=== PATIENT | female | born 1990 | race African-American/Black ===

== ENCOUNTER 2017-08-10 13:16 | Emergency (ER) | payer SELFPAY ==
[2017-08-10] MEDS ORDERED: ASPIRIN 325 MG TABLET PO ONE (14:00)
--- NOTE | 2017-08-10 14:02 | ER Document Report ---
ED Medical Screen (RME) - General Chief Complaint: Rib Pain Stated Complaint: RIB PAIN Time Seen by Provider: 08/10/17 14:00 Mode of Arrival: Ambulatory Information source: Patient TRAVEL OUTSIDE OF THE [place] IN LAST 30 DAYS: No - HPI Patient complains to provider of: CP/Abd pain Onset: Other - pt states she has been having intermittent CP/Abd pain for the past week. She says she has had R-sided rib pain for the past year (denies h/o trauma) - Related Data Allergies/Adverse Reactions: cherries Allergy (Severe, Uncoded 05/09/16 20:05) face swells Past Medical History - Social History Chew tobacco use (# tins/day): No Frequency of alcohol use: None Drug Abuse: None Renal/ Medical History: Denies: Hx Peritoneal Dialysis GI Medical History: Reports: Hx Gastroesophageal Reflux Disease. Denies: Hx Hiatal Hernia, Hx Ulcer Psychiatric Medical History: Reports: Hx Depression, Hx Post Traumatic Stress Disorder Denies: Hx Bipolar Disorder, Hx Schizophrenia Infectious Medical History: Denies: Hx HIV Past Surgical History: Reports: Hx Section Physical Exam - Vital signs Vitals: Temp Pulse Resp BP Pulse Ox 98.2 F 88 20 131/79 H 100 08/10/17 13:22 08/10/17 13:22 08/10/17 13:22 08/10/17 13:22 08/10/17 13:22 Course - Vital Signs Vital signs: Temp Pulse Resp BP Pulse Ox 98.2 F 88 20 131/79 H 100 08/10/17 13:22 08/10/17 13:22 08/10/17 13:22 08/10/17 13:22 08/10/17 13:22
[2017-08-10] MEDS ORDERED: LIDOCAINE 2% VISCOUS SOLN 20 ML UDCUP PO ONE (14:26)
[2017-08-10] MEDS ORDERED: MAG HYDROX/AL HYDROX/SIMETH SUSP 30 ML UDCUP PO ONE (14:26)
[2017-08-10] MEDS ORDERED: METOCLOPRAMIDE HCL ORAL SOLN 10 MG/10 ML UDCUP PO ONE (14:26)
[2017-08-10 14:39] LABS: ABSOLUTE EOSINOPHILS # (AUTO) 0.2 10^3/uL (0.0-0.6); ABSOLUTE LYMPHOCYTES (AUTO) 2.9 10^3/uL (0.5-4.7); ABSOLUTE MONOCYTES (AUTO) 0.8 10^3/uL (0.1-1.4); ABSOLUTE NEUT (AUTO) 4.6 10^3/uL (1.7-8.2); BASOPHILS % (AUTO) 0.6 % (0-2); EOSINOPHILS % (AUTO) 2.5 % (0-6); HEMATOCRIT 31.6 % (36.0-47.0); HEMOGLOBIN 10.6 g/dL (12.0-15.5); HGB HCT DIFFERENCE 0.2; LYMPHOCYTES % (AUTO) 33.8 % (13-45); MEAN CORPUSCULAR HEMOGLOBIN 27.7 pg (27.0-33.4); MEAN CORPUSCULAR HGB CONC 33.6 g/dL (32.0-36.0); MEAN CORPUSCULAR VOLUME 83 fl (80-97); MONOCYTES % (AUTO) 9.7 % (3-13); RED BLOOD COUNT 3.82 10^6/uL (3.72-5.28); RED CELL DISTRIBUTION WIDTH 15.3 % (11.5-14.0); SEGMENTED NEUTROPHILS % (AUTO) 53.4 % (42-78); WHITE BLOOD COUNT 8.7 10^3/uL (4.0-10.5)
[2017-08-10 14:43] LABS: APPEARANCE,URINE CLEAR; BILIRUBIN,URINE NEGATIVE (NEGATIVE); GLUCOSE, URINE NEGATIVE (NEGATIVE); KETONES,URINE NEGATIVE (NEGATIVE); LEUKOCYTE ESTERASE,URINE NEGATIVE (NEGATIVE); NITRITE,URINE NEGATIVE (NEGATIVE); PROTEIN,URINE NEGATIVE (NEGATIVE); URINE SPECIFIC GRAVITY 1.024
--- NOTE | 2017-08-10 15:02 | RADIOLOGY REPORT (SQ) ---
EXAM DESCRIPTION: ACUTE ABDOMEN SERIES COMPLETED DATE/TIME: 08/10/2017 2:53 pm REASON FOR STUDY: CP/Abd pain COMPARISON: None. NUMBER OF VIEWS: Three views. TECHNIQUE: Frontal chest, supine abdomen and upright abdomen radiographic images acquired. LIMITATIONS: None. FINDINGS: CHEST: Lungs clear of infiltrates. FREE AIR: None. No abnormal gas collections. BOWEL GAS PATTERN: Nonobstructive pattern. No dilated loops or air fluid levels. CALCIFICATIONS: No suspicious calcifications. HARDWARE: None in the abdomen. SOFT TISSUES: No gross mass or suggestion of organomegaly. BONES: No acute fracture. No worrisome bone lesions. OTHER: No other significant finding. IMPRESSION: NO RADIOGRAPHIC EVIDENCE FOR ACUTE ABDOMINAL DISEASE. TECHNICAL DOCUMENTATION: JOB ID: [id number] [employer]- All Rights Reserved
[2017-08-10 15:03] LABS: ALANINE AMINOTRANSFERASE 44 U/L (9-52); ALBUMIN 4.3 g/dL (3.5-5.0); ALKALINE PHOSPHATASE 85 U/L (38-126); ANION GAP 11 (5-19); ASPARTATE AMINO TRANSFERASE 35 U/L (14-36); BILIRUBIN,DIRECT 0.3 mg/dL (0.0-0.4); BILIRUBIN,TOTAL 0.3 mg/dL (0.2-1.3); BLOOD UREA NITROGEN 13 mg/dL (7-20); CALCIUM 9.8 mg/dL (8.4-10.2); CARBON DIOXIDE 25 mmol/L (22-30); CHLORIDE 107 mmol/L (98-107); CREATINE KINASE 79 U/L (30-135); CREATININE RESULT 0.79 mg/dL (0.52-1.25); GLUCOSE 84 mg/dL (75-110); POTASSIUM 4.4 mmol/L (3.6-5.0); SODIUM 143.4 mmol/L (137-145); TOTAL PROTEIN 7.3 g/dL (6.3-8.2)
[2017-08-10 15:14] LABS: CREATINE KINASE MB < 0.22 ng/mL (<4.55); TROPONIN I < 0.012 ng/mL
--- NOTE | 2017-08-10 17:17 | RADIOLOGY REPORT (SQ) ---
EXAM DESCRIPTION: U/S ABDOMEN LIMITED W/O DOP COMPLETED DATE/TIME: 08/10/2017 4:51 pm REASON FOR STUDY: ruq pain COMPARISON: None. TECHNIQUE: Dynamic and static grayscale images acquired of the abdomen and recorded on PACS. Additio nal selected color Doppler and spectral images recorded. LIMITATIONS: None. FINDINGS: PANCREAS: No masses. Visualized pancreatic duct normal caliber. LIVER: No masses. Echotexture normal. LIVER VASCULATURE: Normal directional flow of the main portal vein and hepatic veins. GALLBLADDER: No stones. Normal wall thickness. No pericholecystic fluid. ULTRASOUND-DETECTED SHEPHERD'S SIGN: Negative. INTRAHEPATIC DUCTS AND COMMON DUCT: CBD and intrahepatic ducts normal caliber. No filling defects. INFERIOR VENA CAVA: Normal flow. AORTA: No aneurysm. RIGHT KIDNEY: Normal size. Normal echogenicity. No solid or suspicious masses. No hydronephrosis. No calcifications. PERITONEAL AND RIGHT PLEURAL SPACE: No ascites or effusions. OTHER: No other significant findings. IMPRESSION: NORMAL RIGHT UPPER QUADRANT ULTRASOUND. TECHNICAL DOCUMENTATION: JOB ID: [id number] [employer]- All Rights Reserved
--- NOTE | 2017-08-10 17:26 | ER Document Report ---
ED General - General Chief Complaint: Rib Pain Stated Complaint: RIB PAIN Time Seen by Provider: 08/10/17 14:00 Mode of Arrival: Ambulatory Information source: Patient Notes: Patient is a 26-year-old female who presents to the ER today for 1 year of right "rib pain." Patient states that it comes and goes, denies any injury ever. She states that it does get worse with eating fatty, greasy foods and she admits to some episodes of diarrhea intermittently over the past year. She denies any vomiting. She also admits to burning in the center of her chest that radiates up into her throat. She does have a history of stomach ulcers and is on Prilosec but nothing else. She has never had an endoscopy or colonoscopy. She still has her gallbladder. She denies any fevers or chills. TRAVEL OUTSIDE OF THE [place] IN LAST 30 DAYS: No - Related Data Allergies/Adverse Reactions: cherries Allergy (Severe, Uncoded 05/09/16 20:05) face swells Past Medical History - General Information source: Patient - Social History Smoking Status: Current Every Day Smoker Chew tobacco use (# tins/day): No Frequency of alcohol use: None Drug Abuse: None Family History: Reviewed & Not Pertinent Patient has suicidal ideation: No Patient has homicidal ideation: No Renal/ Medical History: Denies: Hx Peritoneal Dialysis GI Medical History: Reports: Hx Gastroesophageal Reflux Disease. Denies: Hx Hiatal Hernia, Hx Ulcer Psychiatric Medical History: Reports: Hx Depression, Hx Post Traumatic Stress Disorder Denies: Hx Bipolar Disorder, Hx Schizophrenia Infectious Medical History: Denies: Hx HIV Past Surgical History: Reports: Hx Section Review of Systems - Review of Systems Constitutional: No symptoms reported EENT: No symptoms reported Cardiovascular: No symptoms reported Respiratory: No symptoms reported Gastrointestinal: See HPI Genitourinary: No symptoms reported Female Genitourinary: No symptoms reported Musculoskeletal: See HPI Skin: No symptoms reported Hematologic/Lymphatic: No symptoms reported Neurological/Psychological: No symptoms reported Physical Exam - Vital signs Vitals: Temp Pulse Resp BP Pulse Ox 98.2 F 88 20 131/79 H 100 08/10/17 13:22 08/10/17 13:22 08/10/17 13:22 08/10/17 13:22 08/10/17 13:22 - Notes Notes: PHYSICAL EXAMINATION: GENERAL: Well-appearing and in no acute distress. HEAD: Atraumatic, normocephalic. EYES: Pupils equal round and reactive to light, extraocular movements intact, sclera anicteric, conjunctiva are normal. NECK: Normal range of motion, supple without lymphadenopathy LUNGS: CTAB and equal. No wheezes rales or rhonchi. HEART: Regular rate and rhythm without murmurs ABDOMEN: Soft, Right upper quadrant, epigastric tenderness. No guarding, no rebound BACK: no vertebral tenderness, normal ROM GI/: no CVA tenderness EXTREMITIES: Normal range of motion, no pitting edema. No cyanosis. NEUROLOGICAL: Cranial nerves grossly intact. Normal sensory/motor exams. PSYCH: Normal mood, normal affect. SKIN: Warm, Dry, normal turgor, no rashes or lesions noted Course - Re-evaluation Re-evalutation: 08/15/17 08:07 Lab work is unremarkable today, right upper quadrant ultrasound negative for any acute pathology to the gallbladder are otherwise. Patient likely has intermittent gallbladder attacks, to follow up with business area director who I have given her information for for that as well as for an endoscopy to evaluate her possible ulcers. I will send her home with Carafate and have advised that she continue Prilosec. - Vital Signs Vital signs: Temp Pulse Resp BP Pulse Ox 97.7 F 88 33 H 130/78 H 100 08/10/17 16:15 08/10/17 13:22 08/10/17 17:29 08/10/17 17:29 08/10/17 17:29 - Laboratory Result Diagrams: 08/10/17 14:15 08/10/17 14:15 Laboratory results interpreted by me: 08/10/17 08/10/17 14:15 14:15 Hgb 10.6 L Hct 31.6 L RDW 15.3 H Urine Urobilinogen 4.0 H Discharge - Discharge Clinical Impression: RUQ pain, Epigastric pain Condition: Stable Disposition: HOME, SELF-CARE Instructions: Gallbladder Disease ([facility]), Low-Fat Diet ([facility]) Additional Instructions: Return immediately for any new or worsening symptoms. Follow up with business area director, call tomorrow to make followup appointment. Prescriptions: Sucralfate [Carafate 1 gm Tablet] 1 gm PO ACHS #40 tablet Forms: Return to Work Referrals: LU SANABRIA MD [ACTIVE STAFF] - Follow up as needed
[2017-08-10 17:44] VITALS: BP 130/78
== END 2017-08-10 17:44 | disposition home or self-care (01) ==
LOC: ER 13:16
DX: K25.9 Gastric ulcer, unspecified as acute or chronic, without hemorrhage or perforation (principal); Z79.899 Other long term (current) drug therapy; R10.13 Epigastric pain; R10.11 Right upper quadrant pain; R07.81 Pleurodynia; R19.7 Diarrhea, unspecified; F17.200 Nicotine dependence, unspecified, uncomplicated; Z91.018 Allergy to other foods; Z87.19 Personal history of other diseases of the digestive system
CPT/HCPCS: 99284; 36415; 82553; 82550; 85025; 81025; 80053; 81001; 84484; 74022; 76705; J3490

== ENCOUNTER 2017-11-23 18:33 | Emergency (ER) | payer SELFPAY ==
[2017-11-23 18:51] VITALS: BP 127/76
[2017-11-23] MEDS ORDERED: IBUPROFEN 800 MG TABLET PO ONE (19:06)
[2017-11-23] MEDS ORDERED: PSEUDOEPHEDRINE HCL 30 MG TABLET PO ONE (19:06)
--- NOTE | 2017-11-23 19:06 | ER Document Report ---
HPI - HPI Pain Level: 5 Context: Patient is a 27-year-old female presents emergency department with chief complaint of sinus congestion, body aches since yesterday. She denies any fevers. States that she has not taken anything for symptoms. Admits to sick contacts at work. Otherwise healthy female. Non-smoker Past Medical History - Social History Smoking Status: Never Smoker Family History: Reviewed & Not Pertinent Renal/ Medical History: Denies: Hx Peritoneal Dialysis GI Medical History: Reports: Hx Gastroesophageal Reflux Disease. Denies: Hx Hiatal Hernia, Hx Ulcer Psychiatric Medical History: Reports: Hx Depression, Hx Post Traumatic Stress Disorder Denies: Hx Bipolar Disorder, Hx Schizophrenia Infectious Medical History: Denies: Hx HIV Past Surgical History: Reports: Hx Section Vertical Provider Document - CONSTITUTIONAL Agree With Documented VS: Yes Notes: PHYSICAL EXAM GENERAL: Alert, interacts well. HEENT: NCAT, pale conjunctiva, extraocular movements intact, pupils PERRL. external ear normal, no evidence of external auditory canal tenderness, blood/ drainage, cerumen impaction, TM intact without evidence of effusion, bulging, injection, MMM, Uvula midline. Airway patent. No evidence of tonsillar enlargement, peritonsillar abscess, retropharyngeal abscess. LUNGS: Clear to auscultation bilaterally, no wheezes, rales, or rhonchi. No respiratory distress. HEART: Regular rate and rhythm. No murmurs, gallops, or rubs. ABDOMEN: Soft, nondistended, nontender. No guarding, rebound, or rigidity.. Bowel sounds present in all 4 quadrants. EXTREMITIES: Moves all 4 extremities spontaneously. No edema, radial and dorsalis pedis pulses 2/4 bilaterally. No cyanosis. NEUROLOGICAL: Alert and oriented x4. Normal speech. PSYCH: Normal affect, normal mood. SKIN: Warm, dry, normal turgor. No rashes or lesions noted. - INFECTION CONTROL TRAVEL OUTSIDE OF THE [place] IN LAST 30 DAYS: No - RESPIRATORY O2 Sat by Pulse Oximetry: 98 Course - Re-evaluation Re-evalutation: 11/23/171999 Presentation is most consistent with a viral upper respiratory infection. Patient is overall well appearance, vitals within normal limits, well-hydrated. Patient denies any headache, neck pain, and has no evidence of meningismus on examination. Lungs are clear bilaterally. No evidence of respiratory distress. Based on clinical exam and history, I do not suspect an acute pneumonia, meningitis, strep pharyngitis, or an acute encephalitis. No laboratory or imaging testing is indicated at this time. Will discharge patient with return precautions and followup recommendations. They are in agreement this plan have verbalized understanding return precautions. - Vital Signs Vital signs: Temp Pulse Resp BP Pulse Ox 98.5 F 101 H 20 127/76 H 98 11/23/17 18:50 11/23/17 18:50 11/23/17 18:50 11/23/17 18:50 11/23/17 18:50 Discharge - Discharge Clinical Impression: Viral syndrome Condition: Good Disposition: HOME, SELF-CARE Additional Instructions: Your symptoms are most likely due to a viral infection it should resolve over the next 7-14 days. You should take [id number] guanfacine per bottle instructions to help thin the mucus. For nasal congestion: I would recommend that you get [id number] oxymetazoline also known is afrin. You can also utilize pseudophedrine for your decongestant. Use only per bottle instructions and be sure to never use this for more than 3 days if you can develop severe rebound congestion. You may also use tylenol or ibuprofen as needed for aches and thorat discomfort. Please be sure to drink plenty of fluids and get rest. Return to the emergency department he began having difficulty breathing, chest pain, persistent vomiting, or any other symptoms that are concerning to you. Forms: Return to Work
[2017-11-23 19:44] LABS: A TYPE INFLUENZA AG NEGATIVE (NEGATIVE); B INFLUENZA AG NEGATIVE (NEGATIVE)
== END 2017-11-23 19:57 | disposition home or self-care (01) ==
LOC: ER 18:33
DX: R09.81 Nasal congestion (principal); B34.9 Viral infection, unspecified; M79.1 Myalgia
CPT/HCPCS: 87804; 99283

== ENCOUNTER 2018-02-04 21:49 | Emergency (ER) | payer MEDICAID ==
--- NOTE | 2018-02-05 00:51 | RADIOLOGY REPORT (SQ) ---
EXAM DESCRIPTION: U/S OB TRANSVAGINAL W/O DOP CLINICAL HISTORY: 27 years Female, preg, bleeding, pain COMPARISON: None. TECHNIQUE: Complete first trimester obstetrical ultrasound with transvaginal imaging. LMP 11/27/2017 FINDINGS: The cervix measures 2.8 cm. Also possible small amount of fluid in the cervix. The uterus measures 12.5 x 9.1 x 7.0 cm. Within the uterus there is a single gestational sac. There is a single fetus with a crown-rump length of 2.87 cm compatible with an estimated gestational age of 9 weeks, 5 days. heart rate of 180 beats for minute. There is a 1.8 x 1.1 cm hypodensity adjacent to the gestational sac likely representing a subchorionic hemorrhage. The right ovary measures 4.0 x 2.7 x 2.6 cm. The left ovary is not identified. IMPRESSION: 1. Single live intrauterine with estimated gestational age of 9 weeks, 5 days. heart rate of 180 beats for minute. 2. Possible small amount of fluid in the cervix as well as a small likely subchorionic hemorrhage measuring 1.8 cm. Close continued clinical, laboratory, and sonographic follow-up recommended.
--- NOTE | 2018-02-05 00:54 | ER Document Report ---
ED General - General Chief Complaint: vaginal spotting with Stated Complaint: ABNORMAL VAGINAL DISCHARGE Time Seen by Provider: 02/04/18 22:59 Notes: Patient is a 27-year-old female, at 9 weeks by LMP who presents with concerns of brownish vaginal discharge that started just prior to arrival. She does note that she has had some mild, intermittent lower abdominal cramping. Nothing seems to improve or worsen her symptoms. She denies a history of similar symptoms during her previous pregnancies. She is B+ in blood type. She denies any abdominal trauma, fever, vaginal discharge, or any additional concerns. She has not yet established care for this . TRAVEL OUTSIDE OF THE [place] IN LAST 30 DAYS: No - Related Data Allergies/Adverse Reactions: cherries Allergy (Severe, Uncoded 05/09/16 20:05) face swells Past Medical History - General Information source: Patient - Social History Smoking Status: Never Smoker Frequency of alcohol use: None Drug Abuse: None Lives with: Spouse/Significant other Family History: Reviewed & Not Pertinent Renal/ Medical History: Denies: Hx Peritoneal Dialysis GI Medical History: Reports: Hx Gastroesophageal Reflux Disease. Denies: Hx Hiatal Hernia, Hx Ulcer Psychiatric Medical History: Reports: Hx Depression, Hx Post Traumatic Stress Disorder Denies: Hx Bipolar Disorder, Hx Schizophrenia Infectious Medical History: Denies: Hx HIV Past Surgical History: Reports: Hx Section, Hx Tonsillectomy Review of Systems - Review of Systems Notes: Constitutional: Negative for fever. HENT: Negative for sore throat. Eyes: Negative for visual changes. Cardiovascular: Negative for chest pain. Respiratory: Negative for shortness of breath. Gastrointestinal: Positive for abdominal cramping Genitourinary: Positive for vaginal bleeding Musculoskeletal: Negative for back pain. Skin: Negative for rash. Neurological: Negative for headaches, weakness or numbness. 10 point ROS negative except as marked above and in HPI. Physical Exam - Vital signs Interpretation: Normal Notes: PHYSICAL EXAMINATION: GENERAL: Well-appearing, well-nourished and in no acute distress. HEAD: Atraumatic, normocephalic. EYES: Pupils equal round and reactive to light, extraocular movements intact, sclera anicteric, conjunctiva are normal. ENT: nares patent, oropharynx clear without exudates. Moist mucous membranes. NECK: Normal range of motion, supple without lymphadenopathy LUNGS: Breath sounds clear to auscultation bilaterally and equal. No wheezes rales or rhonchi. HEART: Regular rate and rhythm without murmurs ABDOMEN: Soft, nontender, normoactive bowel sounds. No guarding, no rebound. No masses appreciated. EXTREMITIES: Normal range of motion, no pitting or edema. No cyanosis. NEUROLOGICAL: No focal neurological deficits. Moves all extremities spontaneously and on command. PSYCH: Normal mood, normal affect. SKIN: Warm, Dry, normal turgor, no rashes or lesions noted. Course - Re-evaluation Re-evalutation: 02/05/18 00:54 Patient presents with a mild amount of vaginal bleeding in the setting of a first trimester . Ultrasound does demonstrate a viable intrauterine with active heart rate. No active bleeding at time of presentation. She is Rh positive. Patient's abdominal exam is otherwise benign without any focal tenderness. I do not suspect an acute appendicitis, pyelonephritis, cystitis, or bowel obstruction. At this time will discharge with return precautions and follow-up recommendations. Verbal discharge instructions given a the bedside and opportunity for questions given. Medication warnings reviewed. Patient is in agreement with this plan and has verbalized understanding of return precautions and the need for primary care follow-up in the next 24-72 hours. - Laboratory Laboratory results interpreted by me: 02/04/18 23:20 Beta HCG, Quant [id number] H - Diagnostic Test Radiology reviewed: Reports reviewed Discharge - Discharge Clinical Impression: First trimester , Vaginal bleeding during Condition: Good Disposition: HOME, SELF-CARE Additional Instructions: Your ultrasound today shows a living intrauterine . Please follow closely with your primary care TUBING TESTER. Please return if you develop severe abdominal pain, bleeding that goes through more than 2 pads for more than 2 hours, pass out, or have any other symptoms that are concerning to you. Please follow-up closely with your OBGYN regarding todays visit.
[2018-02-05 01:13] VITALS: BP 122/61
== END 2018-02-05 01:10 | disposition home or self-care (01) ==
LOC: ER 21:49
DX: O26.851 Spotting complicating pregnancy, first trimester (principal); Z3A.01 Less than 8 weeks gestation of pregnancy
CPT/HCPCS: 36415; 76817; 84702; 99284

== ENCOUNTER 2018-06-07 09:47 | Outpatient (CLI) | payer MEDICAID ==
[2018-06-07 11:02] LABS: URINE AMPHETAMINES SCREEN NEGATIVE; URINE BARBITURATES SCREEN NEGATIVE; URINE BENZODIAZEPINES SCREEN NEGATIVE; URINE COCAINE SCREEN NEGATIVE; URINE MARIJUANA (THC) SCREEN NEGATIVE; URINE METHADONE SCREEN NEGATIVE; URINE PHENCYCLIDINE SCREEN NEGATIVE
[2018-06-07 11:34] LABS: APPEARANCE,URINE SLIGHTLY-CLOUDY; BILIRUBIN,URINE NEGATIVE (NEGATIVE); CALCIUM OXALATE CRYSTALS,URINE RARE /HPF; COLOR,URINE YELLOW; GLUCOSE, URINE NEGATIVE (NEGATIVE); KETONES,URINE NEGATIVE (NEGATIVE); LEUKOCYTE ESTERASE,URINE TRACE (NEGATIVE); NITRITE,URINE NEGATIVE (NEGATIVE); PROTEIN,URINE NEGATIVE (NEGATIVE); URINE SPECIFIC GRAVITY 1.017
[2018-06-07] MEDS ORDERED: HYDROXYZINE PAMOATE 50 MG CAPSULE PO ONE (11:44)
[2018-06-07] MEDS ORDERED: HYDROXYZINE PAMOATE 50 MG CAPSULE ONE (11:46)
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
== END 2018-06-07 13:11 | disposition home or self-care (01) ==
LOC: LC 09:47 → EDSTATUS 10:11 → LC 10:13
PROVIDERS: ATTEND Obstetrics & Gynecology
PROC: 4A1HXCZ Monitoring of Products of Conception, Cardiac Rate, External Approach (ICD-10-PCS; principal; 2018-06-07)
DX: O9A.212 Injury, poisoning and certain other consequences of external causes complicating pregnancy, second trimester (principal); Z3A.25 25 weeks gestation of pregnancy
CPT/HCPCS: 81001; 80307; 59899; J3490

== ENCOUNTER 2018-08-26 11:41 | Outpatient (CLI) | payer MEDICAID | END 2018-08-26 13:15 | disposition home or self-care (01) | LOC: LC 11:41 | PROVIDERS: ATTEND Student in an Organized Health Care Education/Training Program | PROC: 4A1HXCZ Monitoring of Products of Conception, Cardiac Rate, External Approach (ICD-10-PCS; principal; 2018-08-26) | DX: O99.333 Smoking (tobacco) complicating pregnancy, third trimester (principal); O99.343 Other mental disorders complicating pregnancy, third trimester; F41.8 Other specified anxiety disorders; Z3A.39 39 weeks gestation of pregnancy | CPT/HCPCS: 59025 ==

== ENCOUNTER 2018-08-28 18:08 | Emergency (ER) | payer MEDICAID ==
[2018-08-28 18:15] VITALS: BP 125/79
[2018-08-28] MEDS ORDERED: LIDOCAINE 2% URO-JET 5 ML KIT MM ONE (18:59)
--- NOTE | 2018-08-28 19:07 | ER Document Report ---
ED General - General Chief Complaint: Rectal Pain Stated Complaint: RECTAL ISSUE Time Seen by Provider: 08/28/18 18:49 TRAVEL OUTSIDE OF THE [place] IN LAST 30 DAYS: No - HPI Patient complains to provider of: Rectal pain Notes: Patient coming in approximately 7 weeks is having done on Sunday coming in for rectal pain. Patient has a history of hemorrhoids however is not treating her hemorrhoids of any medications. Patient denies any fever chills nausea vomiting diarrhea. Patient otherwise is lying comfortably on her right side. - Related Data Allergies/Adverse Reactions: cherries Allergy (Severe, Uncoded 08/28/18 18:09) face swells Past Medical History - Social History Smoking Status: Current Every Day Smoker Chew tobacco use (# tins/day): No Frequency of alcohol use: None Drug Abuse: None Family History: Reviewed & Not Pertinent Patient has suicidal ideation: No Patient has homicidal ideation: No Renal/ Medical History: Denies: Hx Peritoneal Dialysis GI Medical History: Reports: Hx Gastroesophageal Reflux Disease. Denies: Hx Hiatal Hernia, Hx Ulcer Psychiatric Medical History: Reports: Hx Depression, Hx Post Traumatic Stress Disorder Denies: Hx Bipolar Disorder, Hx Schizophrenia Infectious Medical History: Denies: Hx HIV Past Surgical History: Reports: Hx Section, Hx Tonsillectomy Review of Systems - Review of Systems Constitutional: No symptoms reported EENT: No symptoms reported Cardiovascular: No symptoms reported Respiratory: No symptoms reported Gastrointestinal: No symptoms reported Genitourinary: Other - Rectal pain Female Genitourinary: No symptoms reported Musculoskeletal: No symptoms reported Skin: No symptoms reported Hematologic/Lymphatic: No symptoms reported Neurological/Psychological: No symptoms reported -: Yes All other systems reviewed and negative Physical Exam - Vital signs Vitals: Temp Pulse Resp BP Pulse Ox 98.3 F 107 H 20 125/79 96 08/28/18 18:14 08/28/18 18:14 08/28/18 18:14 08/28/18 18:14 08/28/18 18:14 Interpretation: Normal - General General appearance: Appears well, Alert - HEENT Head: Normocephalic, Atraumatic Eyes: Normal Pupils: PERRL - Respiratory Respiratory status: No respiratory distress Chest status: Nontender Breath sounds: Normal Chest palpation: Normal - Cardiovascular Rhythm: Regular Heart sounds: Normal auscultation Murmur: No - Abdominal Inspection: Normal Distension: No distension Bowel sounds: Normal Tenderness: Nontender Organomegaly: No organomegaly - Rectal Hemorrhoids: External - Approximately 2 cm partially thrombosed hemorrhoid - Back Back: Normal, Nontender - Extremities General upper extremity: Normal inspection, Nontender, Normal color, Normal ROM , Normal temperature General lower extremity: Normal inspection, Nontender, Normal color, Normal ROM , Normal temperature, Normal weight bearing. No: Aditya's sign - Neurological Neuro grossly intact: Yes Cognition: Normal Orientation: AAOx4 [place] Coma Scale Eye Opening: Spontaneous Brian Coma Scale Verbal: Oriented Brian Coma Scale Motor: Obeys Commands [place] Coma Scale Total: 15 Speech: Normal Motor strength normal: LUE, RUE, LLE, RLE Sensory: Normal - Psychological Associated symptoms: Normal affect, Normal mood - Skin Skin Temperature: Warm Skin Moisture: Dry Skin Color: Normal Course - Re-evaluation Re-evalutation: 08/28/18 21:59 Patient was to have a partially thrombosed hemorrhoid approximate 2 cm. Patient at this time recommended to have symptomatic treatment with lidocaine and Anusol. Patient was given surgery and GI follow-up for definitive treatment of hemorrhoids when she has a section. - Vital Signs Vital signs: Temp Pulse Resp BP Pulse Ox 98.3 F 107 H 20 125/79 96 08/28/18 18:14 08/28/18 18:14 08/28/18 18:14 08/28/18 18:14 08/28/18 18:14 Discharge - Discharge Clinical Impression: Acute hemorrhoid Disposition: HOME, SELF-CARE Instructions: Gastroenterology, Hemorrhoids ([facility]) Additional Instructions: Follow-up with your primary care physician. Physical examination it does show signs of hemorrhoids. I would highly recommend following up with her surgical clinic or the GI specialist listed for further evaluation of your hemorrhoids as he knows she is to use it before she. Return to the ER symptoms worsen take medications as prescribed. Prescriptions: Lidocaine HCl/Glycerin [Recticare Wipes] 1 each TP QID #60 towelette Pramoxine HCl/Mineral Oil/Znox [Anusol Ointment] 24 gm RC TID #1 tube Forms: Return to Work Referrals: JUAN MIGUEL CERVANTES MD [ACTIVE STAFF] - Follow up as needed
== END 2018-08-28 19:42 | disposition home or self-care (01) ==
LOC: ER 18:08
DX: O22.40 Hemorrhoids in pregnancy, unspecified trimester (principal); O99.330 Smoking (tobacco) complicating pregnancy, unspecified trimester; Z3A.00 Weeks of gestation of pregnancy not specified; Z91.018 Allergy to other foods
CPT/HCPCS: 99283; J3490

== ENCOUNTER 2018-08-30 07:12 | Inpatient (IN) | payer MEDICAID ==
[2018-08-30] MEDS ORDERED: GLUCAGON,HUMAN RECOMB 1 MG INJ SUBCUT PRN (07:34)
[2018-08-30] MEDS ORDERED: DEXTROSE 40% GEL 15 GM TUBE PO PRN ×2 (07:34)
[2018-08-30] MEDS ORDERED: DEXTROSE 50%-WATER 25 GM/50 ML DISP.SYRIN IV PRN ×2 (07:34)
[2018-08-30] MEDS ORDERED: CEFAZOLIN SODIUM 2 GM in DEXTROSE 5%-WATER 50 ML IV PRN (07:36)
[2018-08-30] MEDS ORDERED: RINGERS SOLUTION,LACTATED 1,000 ML IV ONE (07:38)
[2018-08-30] MEDS ORDERED: RINGERS SOLUTION,LACTATED 1,000 ML IV PRN (07:38)
[2018-08-30] MEDS ORDERED: CEFAZOLIN 2 GM/D5W RTU 2 GM/50 ML RTUPB IV PRN (08:00)
[2018-08-30 08:55] LABS: HEMATOCRIT 23.1 % (36.0-47.0); MEAN CORPUSCULAR HEMOGLOBIN 27.4 pg (27.0-33.4); MEAN CORPUSCULAR HGB CONC 32.8 g/dL (32.0-36.0); MEAN CORPUSCULAR VOLUME 83 fl (80-97); PLATELET COUNT 312 10^3/uL (150-450); RED BLOOD COUNT 2.77 10^6/uL (3.72-5.28); RED CELL DISTRIBUTION WIDTH 16.8 % (11.5-14.0); WHITE BLOOD COUNT 14.6 10^3/uL (4.0-10.5)
[2018-08-30 09:05] LABS: HEMOGLOBIN 7.6 g/dL (12.0-15.5)
[2018-08-30 09:27] LABS: ABSOLUTE LYMPHOCYTES# (MANUAL) 2.9 10^3/uL (0.5-4.7); ABSOLUTE MONOCYTES # (MANUAL) 0.1 10^3/uL (0.1-1.4); ABSOLUTE NEUTROPHILS# (MANUAL) 11.5 10^3/uL (1.7-8.2); BAND NEUTROPHILS % (MANUAL) 1 % (3-5); BASOPHILS % (MANUAL) 0 % (0-2); EOSINOPHILS % (MANUAL) 0 % (0-6); LYMPHOCYTES % (MANUAL) 20 % (13-45); MONOCYTES % (MANUAL) 1 % (3-13); SEGMENTED NEUTROPHILS % (MAN) 78 % (42-78); TOTAL CELLS COUNTED 100
[2018-08-30 09:32] LABS: ANISOCYTOSIS 1+; PLATELET COMMENT ADEQUATE; POLYCHROMASIA SLIGHT; TARGET CELLS 1+
[2018-08-30 09:34] LABS: ABSOLUTE RETICS # 0.065 10^6/uL (0.028-0.122); RETICULOCYTE COUNT (AUTO) 2.32 % (0.66-2.85)
[2018-08-30] MEDS ORDERED: NORMAL SALINE 250 ML IV PRN (09:52)
[2018-08-30] MEDS ORDERED: (PENDING PHARMACY ID) (Sertraline Hcl [Zoloft] 200 MG) PO SCH (10:00)
[2018-08-30] MEDS ORDERED: EPHEDRINE SULFATE INJ 50 MG/1 ML AMPULE ONE ×2 (10:31→18:18)
[2018-08-30 10:39] LABS: APPEARANCE,URINE CLOUDY; BILIRUBIN,URINE NEGATIVE (NEGATIVE); COLOR,URINE AMBER; GLUCOSE, URINE NEGATIVE (NEGATIVE); KETONES,URINE TRACE mg/dL (NEGATIVE); LEUKOCYTE ESTERASE,URINE MODERATE (NEGATIVE); NITRITE,URINE NEGATIVE (NEGATIVE); PROTEIN,URINE 100 mg/dL (NEGATIVE); URINE SPECIFIC GRAVITY 1.027
[2018-08-30 10:56] LABS: URINE AMPHETAMINES SCREEN NEGATIVE; URINE BARBITURATES SCREEN NEGATIVE; URINE BENZODIAZEPINES SCREEN NEGATIVE; URINE COCAINE SCREEN NEGATIVE; URINE MARIJUANA (THC) SCREEN NEGATIVE; URINE METHADONE SCREEN NEGATIVE; URINE PHENCYCLIDINE SCREEN NEGATIVE
[2018-08-30] MEDS ORDERED: KETAMINE HCL INJ 500 MG/10 ML VIAL ONE ×2 (10:59→18:21)
[2018-08-30 11:18] LABS: FERRITIN 6.83 ng/mL (6.2-137.0); IRON(TIBC) < 10.1 ug/dL (37-170)
[2018-08-30] MEDS ORDERED: SUCCINYLCHOLINE CHLORIDE INJ 200 MG/10 ML VIAL ONE (14:11)
[2018-08-30] MEDS ORDERED: NEOSTIGMINE METHYLSULFATE 10 MG/10 ML VIAL ONE (14:11)
[2018-08-30] MEDS ORDERED: ROCURONIUM BROMIDE INJ 50 MG/5 ML VIAL IV ONE (14:11)
[2018-08-30] MEDS ORDERED: ONDANSETRON HCL INJ/PF 4 MG/2 ML SDV ONE (14:11)
[2018-08-30] MEDS ORDERED: GLYCOPYRROLATE 1 MG/5 ML SYRINGE ONE (14:11)
[2018-08-30] MEDS ORDERED: KETOROLAC TROMETHAMINE 60 MG/2 ML SDV ONE (14:11)
[2018-08-30] MEDS ORDERED: DEXAMETHASONE SOD PHOSPHATE INJ 4 MG/1 ML VIAL ONE (14:11)
[2018-08-30] MEDS ORDERED: PROPOFOL INJ 200 MG/20 ML VIAL IV ONE (18:18)
[2018-08-30] MEDS ORDERED: OXYTOCIN 10 UNIT/ML VIAL ONE (18:18)
[2018-08-30] MEDS ORDERED: FENTANYL CITRATE INJ/PF 100 MCG/2 ML AMPUL ONE (18:18)
[2018-08-30] MEDS ORDERED: MIDAZOLAM 2 MG/2 ML INJ ONE (18:19)
[2018-08-30] MEDS ORDERED: BUPIVACAINE HCL/DEX-WATER/PF 15 MG/2 ML AMPULE ONE (18:19)
[2018-08-30] MEDS ORDERED: MORPHINE SULFATE 10 MG/ML INJ IV PRN (19:35)
[2018-08-30] MEDS ORDERED: PROMETHAZINE HCL INJ 25 MG/1 ML VIAL IV PRN ×2 (19:35→20:08)
[2018-08-30] MEDS ORDERED: DIPHENHYDRAMINE HCL 50 MG/ML VIAL IV PRN (19:35)
[2018-08-30] MEDS ORDERED: FENTANYL CITRATE INJ/PF 100 MCG/2 ML AMPUL IV PRN ×3 (19:35)
[2018-08-30] MEDS ORDERED: MORPHINE SULFATE 10 MG/ML INJ ONE ×2 (19:40→20:33)
[2018-08-30] MEDS ORDERED: ACETAMINOPHEN 1,000 MG/100 ML RTUPB IV PRN (20:08)
[2018-08-30] MEDS ORDERED: ACETAMINOPHEN 325 MG TABLET PO PRN (20:08)
[2018-08-30] MEDS ORDERED: DIPH/PERTUSS(ACELL)/TETANUS VAC/PF 0.5 ML SYR (>=10YO) IM PRN (20:08)
[2018-08-30] MEDS ORDERED: MEASLES,MUMPS&RUBELLA VACC/PF 0.5 ML VIAL SUBCUT PRN (20:08)
[2018-08-30] MEDS ORDERED: OXYCODONE-ACETAMINOPHEN 5-325 MG TABLET PO PRN (20:08)
[2018-08-30] MEDS ORDERED: OXYTOCIN/NORMAL SALINE 20 UNIT/1,000 ML RTUINJ IV PRN (20:08)
[2018-08-30] MEDS ORDERED: SIMETHICONE 80 MG TAB.CHEW PO PRN (20:08)
[2018-08-30] MEDS ORDERED: HYDROMORPHONE HCL INJ/PF 2 MG/ML AMPULE ONE (20:49)
[2018-08-30] MEDS: HYDROMORPHONE HCL INJ/PF 2 MG/ML AMPULE IV PRN (20:51)
[2018-08-30] MEDS ORDERED: ACETAMINOPHEN 1,000 MG/100 ML RTUPB IV ONE (20:53)
[2018-08-30] MEDS ORDERED: OXYTOCIN/NORMAL SALINE 20 UNIT/1,000 ML RTUINJ ONE (20:53)
[2018-08-30] MEDS ORDERED: PROMETHAZINE HCL INJ 25 MG/1 ML VIAL ONE (21:23)
[2018-08-30] MEDS ORDERED: DIPHENHYDRAMINE HCL 25 MG CAPSULE PO ONE (21:57)
[2018-08-30] MEDS ORDERED: DIPHENHYDRAMINE HCL 25 MG CAPSULE ONE (21:59)
--- NOTE | 2018-08-30 22:03 | Brief Operative Note ---
BRIEF OPERATIVE REPORT DATE OF SURGERY: 08/30/18 TIME OF SURGERY: 19:00 PREOPERATIVE DIAGNOSIS: H/o section x 2, Undesired fertility, Anemia POSTOPERATIVE DIAGNOSIS: DAGO - delivered, possible posterior fibroid SURGEON: OLIVIER AGUILLON FINDINGS: normal uterus except for possible posterior uterine fibroid, normal bilateral tubes and ovaries. Filschie clips x 2 placed on bilateral fallopian tubes, VFI delivered at 1922 on 08/30/2018. Apgars 9/9, weight 6#8oz. IVF 750ml , UOP 20ml COMPLICATIONS: None ESTIMATED BLOOD LOSS: 560ml TISSUE REMOVED OR ALTERED: placenta and cord TECHNICAL PROCEDURE: Repeat Section, Scar revision, Bilateral Tubal Ligation
[2018-08-31] MEDS: KETOROLAC TROMETHAMINE INJ/PF 30 MG/1 ML SDV IV SCH ×3 (00:06→13:00)
[2018-08-31] MEDS: HYDROMORPHONE HCL INJ/PF 2 MG/ML AMPULE IV PRN (03:37)
[2018-08-31 06:09] LABS: MEAN CORPUSCULAR HEMOGLOBIN 26.2 pg (27.0-33.4); MEAN CORPUSCULAR HGB CONC 32.4 g/dL (32.0-36.0); MEAN CORPUSCULAR VOLUME 81 fl (80-97); PLATELET COUNT 258 10^3/uL (150-450); RED BLOOD COUNT 2.97 10^6/uL (3.72-5.28); RED CELL DISTRIBUTION WIDTH 16.9 % (11.5-14.0); WHITE BLOOD COUNT 23.2 10^3/uL (4.0-10.5)
[2018-08-31 06:33] LABS: HEMOGLOBIN 7.8 g/dL (12.0-15.5)
[2018-08-31] MEDS ORDERED: DIPHENHYDRAMINE HCL 25 MG CAPSULE ONE (07:21)
[2018-08-31] MEDS: OXYCODONE-ACETAMINOPHEN 5-325 MG TABLET PO PRN ×5 (07:36→23:57)
[2018-08-31] MEDS: SERTRALINE HCL 50 MG TABLET PO SCH ×2 (07:54→10:03)
[2018-08-31] MEDS ORDERED: DIPHENHYDRAMINE HCL 25 MG CAPSULE PO PRN (08:16)
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
--- NOTE | 2018-08-31 10:01 | PDOC PROGRESS REPORT ---
Subjective-OB Progress Note for:: 08/31/18 Subjective: PO day #1, B+ Rubella Immune, Scant PNC, Hx of anemia, Blood transfussion prior to her yesterday. Hx of anxiety and depression, smoker, Pt with out c/ o pain today. Up out of bed this morning Physical Exam (OB) Vital Signs: Temp Pulse Resp BP Pulse Ox 98.7 F 83 18 129/88 H 98 08/31/18 00:45 08/31/18 00:45 08/31/18 00:45 08/31/18 00:45 08/31/18 00:45 Intake & Output 08/30/18 08/31/18 09/01/18 06:59 06:59 06:59 Intake Total 1700 Output Total 400 Balance 1700 -400 Weight 93.44 kg - General General Appearance: Appears well, Alert In distress: None - PIH/Pre-Eclampsia Clonus: Negative Headache: Absent Epigastric Pain: No Visual Changes: No - Dressing Removed: Yes Incision: Well Approximated Closure Type: Surgical Glue - Lochia Lochia Amount: Small 10-25 ml Lochia Color: Rubra/Red - Abdomen Description: Soft Hernia Present: No Fundal Description: Firm, Midline Fundal Height: u/u - u/2 - Respiratory Respiratory Status: No respiratory distress - Abdominal Distension: No distension Tenderness: Nontender - Genitourinary Genitourinary Note: voiding - Extremities Upper extremity: Normal inspection Lower extremities: Normal inspection - Neurological Cognition: Normal Orientation: AAOx4 - Psychological Associated symptoms: Normal mood - Skin Skin Temperature: Warm Skin Moisture: Dry Objective-Diagnostic Laboratory: 08/31/18 05:50 08/30/18 08/30/18 08/30/18 08:08 08:08 10:10 WBC RBC Hgb Hct MCV MCH MCHC RDW Plt Count Iron < 10.1 L TIBC 529 H % Saturation UNABLE TO CALCULATE Ferritin 6.83 Vitamin B12 455.0 Folate 9.20 Urine Color BRIGIDO Urine Appearance CLOUDY Urine pH 5.0 Ur Specific [place] 1.027 Urine Protein 100 H Urine Glucose (UA) NEGATIVE Urine Ketones TRACE H Urine Blood NEGATIVE Urine Nitrite NEGATIVE Ur Leukocyte Esterase MODERATE H Blood Type B POSITIVE Antibody Screen NEGATIVE 08/31/18 05:50 WBC 23.2 H RBC 2.97 L Hgb 7.8 L Hct 24.0 L MCV 81 MCH 26.2 L MCHC 32.4 RDW 16.9 H Plt Count 258 Iron TIBC % Saturation Ferritin Vitamin B12 Folate Urine Color Urine Appearance Urine pH Ur Specific [place] Urine Protein Urine Glucose (UA) Urine Ketones Urine Blood Urine Nitrite Ur Leukocyte Esterase Blood Type Antibody Screen Assessment and Plan(PN) - Assessment and Plan (1) Anxiety and depression Is this a current diagnosis for this admission?: Yes (2) Tobacco use affecting in third trimester, antepartum Is this a current diagnosis for this admission?: Yes (3) Anemia Qualifiers: Anemia type: iron deficiency Is this a current diagnosis for this admission?: Yes (4) Noncompliance with treatment plan Is this a current diagnosis for this admission?: Yes (5) Previous section Is this a current diagnosis for this admission?: Yes (6) S/P repeat low transverse Is this a current diagnosis for this admission?: Yes (7) Sterilization Is this a current diagnosis for this admission?: Yes - Time Spent with Patient Time with patient: Less than 15 minutes Medications reviewed and adjusted accordingly: Yes - Disposition Anticipated Discharge: Home Within: within 48 hours
[2018-08-31] MEDS: DOCUSATE SODIUM 100 MG CAPSULE PO SCH ×2 (10:03→19:12)
[2018-08-31] MEDS: PRENATAL VITAMIN W DHA CAPSULE PO SCH (10:03)
[2018-08-31] MEDS: FERROUS SULFATE 325 MG TABLET PO SCH ×2 (11:29→19:12)
[2018-08-31] MEDS: IBUPROFEN 800 MG TABLET PO SCH ×2 (19:11→23:57)
[2018-09-01] MEDS: OXYCODONE-ACETAMINOPHEN 5-325 MG TABLET PO PRN ×4 (04:13→15:53)
[2018-09-01] MEDS: IBUPROFEN 800 MG TABLET PO SCH ×2 (05:52→11:00)
--- NOTE | 2018-09-01 09:59 | PDOC DISCHARGE SUMMARY ---
Final Diagnosis Discharge Date: 09/01/18 - POD#2, pt desires to go home today. Doing well, no complaints. Hx of anemia, pt was transfused 2 units prior to her . B+, rubella immune. Hx of depression and anxiety. - Final Diagnosis (1) Anxiety and depression Is this a current diagnosis for this admission?: Yes (2) Tobacco use affecting in third trimester, antepartum Is this a current diagnosis for this admission?: Yes (3) Anemia Is this a current diagnosis for this admission?: Yes (4) Noncompliance with treatment plan Is this a current diagnosis for this admission?: Yes (5) Previous section Is this a current diagnosis for this admission?: Yes (6) S/P repeat low transverse Is this a current diagnosis for this admission?: Yes (7) Sterilization Is this a current diagnosis for this admission?: Yes Discharge Data - Discharge Medication Prescriptions: Ferrous Sulfate [Feosol 325 mg Tablet] 325 mg PO BIDPCBS #60 tablet Ibuprofen [Motrin 800 mg Tablet] 800 mg PO Q6 #60 tablet Oxycodone HCl/Acetaminophen [Percocet 5-325 mg Tablet] 1 tab PO Q4HP PRN 7 Days #30 tablet PRN Reason: Home Medications: Vit No.130/Iron/Folic [ Tablet] 1 each PO DAILY 03/03/16 Sertraline HCl [Zoloft] 200 mg PO DAILY 08/26/18 Ferrous Sulfate [Feosol 325 mg Tablet] 325 mg PO BIDPCBS #60 tablet 09/01/18 Ibuprofen [Motrin 800 mg Tablet] 800 mg PO Q6 #60 tablet 09/01/18 Oxycodone HCl/Acetaminophen [Percocet 5-325 mg Tablet] 1 tab PO Q4HP PRN 7 Days #30 tablet 09/01/18 Reason(s) for Admission: Ceasarean Section-Repeat Procedures: NST, Ultrasound Intrapartum Procedure(s): : Low Cervical, Transverse, Tubal Ligation - Diagnosis Test Laboratory: Temp Pulse Resp BP Pulse Ox 98.3 F 91 18 140/79 H 98 09/01/18 07:37 09/01/18 07:37 09/01/18 07:37 09/01/18 07:37 09/01/18 07:37 08/30/18 08/30/18 08/31/18 08:08 10:10 05:50 RBC 2.77 L 2.97 L Hgb 7.6 L 7.8 L Hct 23.1 L 24.0 L Urine Opiates Screen NEGATIVE - Discharge information/Instructions Discharge Activity: Activity As Tolerated, No Driving, No Lifting Over 10 Pounds , Pelvic Rest Discharge Diet: As Tolerated, Regular Disposition: HOME, SELF-CARE Follow up with: [facility] in: 1, Weeks
[2018-09-01] MEDS: FERROUS SULFATE 325 MG TABLET PO SCH (10:32)
[2018-09-01] MEDS: DOCUSATE SODIUM 100 MG CAPSULE PO SCH (10:32)
[2018-09-01] MEDS: SERTRALINE HCL 50 MG TABLET PO SCH (10:33)
[2018-09-01] MEDS: PRENATAL VITAMIN W DHA CAPSULE PO SCH (10:40)
[2018-09-01] MEDS ORDERED: BENZOCAINE/MENTHOL SORE THROAT LOZENGE BUCCAL PRN (10:45)
[2018-09-01 11:03] VITALS: BP 129/88
[2018-09-01] MEDS ORDERED: LIDOCAINE 2% VISCOUS SOLN 20 ML UDCUP PO PRN (11:08)
== END 2018-09-01 16:36 | disposition home or self-care (01) | DRG 785 ==
LOC: 2S 07:12
PROVIDERS: ADMIT Student in an Organized Health Care Education/Training Program; ATTEND Student in an Organized Health Care Education/Training Program
PROC: 10D00Z1 Extraction of Products of Conception, Low, Open Approach (ICD-10-PCS; principal; 2018-08-30)
PROC: 0UL70CZ Occlusion of Bilateral Fallopian Tubes with Extraluminal Device, Open Approach (ICD-10-PCS; 2018-08-30)
PROC: 30233N1 Transfusion of Nonautologous Red Blood Cells into Peripheral Vein, Percutaneous Approach (ICD-10-PCS; 2018-08-30)
PROC: 3E0234Z Introduction of Serum, Toxoid and Vaccine into Muscle, Percutaneous Approach (ICD-10-PCS; 2018-09-01)
DX: O34.211 Maternal care for low transverse scar from previous cesarean delivery (principal); N85.8 Other specified noninflammatory disorders of uterus; Z30.2 Encounter for sterilization; Z3A.39 39 weeks gestation of pregnancy; Z37.0 Single live birth; O99.334 Smoking (tobacco) complicating childbirth; O99.02 Anemia complicating childbirth; O99.214 Obesity complicating childbirth; O99.344 Other mental disorders complicating childbirth; D64.9 Anemia, unspecified; F17.210 Nicotine dependence, cigarettes, uncomplicated; F41.8 Other specified anxiety disorders; Z23 Encounter for immunization; Z91.19 Patient's noncompliance with other medical treatment and regimen
CPT/HCPCS: 1961; 36415; 36430; 59025; 80307; 81005; 82607; 82728; 82746; 83540; 83550; 85025; 85027; 85045; 86850; 86900; 86901; 86920; 90715; 94799; J0131; J0330; J1100; J1170; J1885; J2250; J2270; J2405; J2550; J2590; J2704; J3010; J3490; J7120; P9016

== ENCOUNTER 2019-02-10 20:39 | Emergency (ER) | payer MEDICAID ==
[2019-02-10 22:25] VITALS: BP 123/71
== END 2019-02-11 00:32 | disposition left against medical advice (07) ==
LOC: ER 20:39
DX: Z53.21 Procedure and treatment not carried out due to patient leaving prior to being seen by health care provider (principal)

== ENCOUNTER 2019-04-13 21:55 | Emergency (ER) | payer SELFPAY ==
[2019-04-13 22:04] VITALS: BP 121/75
[2019-04-13] MEDS ORDERED: LIDOCAINE 1%/EPINEPHRINE INJ 20 ML VIAL INJ ONE (22:35)
[2019-04-13] MEDS ORDERED: LIDOCAINE 4% TRANSPARENT DRESSING 5 GM KIT TP ONE (22:36)
[2019-04-13] MEDS ORDERED: DOXYCYCLINE HYCLATE 100 MG TABLET PO ONE (23:48)
[2019-04-13] MEDS ORDERED: HYDROCODONE/ACETAMINOPHEN 5-325 MG (6 TAB/ER DISP) PO PRN (23:48)
--- NOTE | 2019-04-13 23:50 | ER Document Report ---
ED General - General Chief Complaint: Abscess Stated Complaint: LUMP UNDER ARM Time Seen by Provider: 04/13/19 22:35 Notes: Patient is a pleasant 28-year-old female presents with complaint of an abscess right axilla region. She has had these before. Said this is bigger than what she had in the past. Says started a week ago as a small bump and continue to grow in size and therefore she came to the ER. No fevers. No vomiting. No other complaints at this time. She is not a diabetic. TRAVEL OUTSIDE OF THE [place] IN LAST 30 DAYS: No - Related Data Allergies/Adverse Reactions: cherries Allergy (Severe, Uncoded 08/28/18 18:09) face swells Past Medical History - Social History Smoking Status: Unknown if Ever Smoked Frequency of alcohol use: None Drug Abuse: None Family History: Reviewed & Not Pertinent Patient has suicidal ideation: No Patient has homicidal ideation: No Renal/ Medical History: Denies: Hx Peritoneal Dialysis GI Medical History: Reports: Hx Gastroesophageal Reflux Disease. Denies: Hx Hiatal Hernia, Hx Ulcer Psychiatric Medical History: Reports: Hx Depression, Hx Post Traumatic Stress Disorder Denies: Hx Bipolar Disorder, Hx Schizophrenia Infectious Medical History: Denies: Hx HIV Past Surgical History: Reports: Hx Section, Hx Tonsillectomy Review of Systems - Review of Systems Notes: My Normal Review Basic REVIEW OF SYSTEMS: CONSTITUTIONAL : Denies fever, chills, or sweats. Denies recent illness. MUSCULOSKELETAL: Denies neck or back pain or joint pain or swelling. SKIN: Abscess in right axilla HEMATOLOGIC : Denies easy bruising or bleeding. NEUROLOGICAL: Denies sensory or motor loss. ALL OTHER SYSTEMS REVIEWED AND NEGATIVE. Physical Exam - Vital signs Vitals: Temp Pulse Resp BP Pulse Ox 98.8 F 98 16 121/75 99 04/13/19 22:02 04/13/19 22:02 04/13/19 22:02 04/13/19 22:02 04/13/19 22:02 - Notes Notes: General Appearance: Well nourished, alert, cooperative, no acute distress, moderate obvious discomfort. Vitals: reviewed, See vital signs table. Eyes: PERRL, EOMI, Conjuctiva clear Extremities: good pulses in right upper extremity, 5 cm area of fluctuance in the right axilla. Localized erythema. No edema. Good strength and distal sensation of the right upper extremity. Skin: warm, dry, appropriate color, no rash Neuro: speech clear, oriented x 3, normal affect, responds appropriately to questions. Course - Re-evaluation Re-evalutation: 04/14/19 05:12 Abscess was incised and drained. Approximately 12 mL's of purulent discharge was expressed from abscess. Abscess was thoroughly irrigated. Patient replaced on antibiotics. She is encouraged to return to the ER in 2 days for reevaluation of the abscess and pack removal. She is encouraged to return to the ER immediately if she has fevers, spreading redness, recurrence of swelling, or if she has concerns that she is worsening in any way. Patient agrees with plan and will be discharged home. Dictation of this chart was performed using voice recognition software; therefore, there may be some unintended grammatical errors. - Vital Signs Vital signs: Temp Pulse Resp BP Pulse Ox 98.2 F 98 18 121/75 98 04/14/19 00:07 04/14/19 00:07 04/14/19 00:07 04/13/19 22:02 04/14/19 00:07 Procedures - Incision and Drainage right axilla Type: Simple Anesthetic type: 1% Lidocaine w/epi mL's of anesthetic: 3 Blade size: 11 I&D procedure: Betadine prep applied Incision Method: Incision made by scalpel Amount/type of drainage: 12 mls of purulent drainage Notes: 04/14/19 05:13 iodoform packing placed Discharge - Discharge Clinical Impression: Abscess Condition: Good Disposition: HOME, SELF-CARE Additional Instructions: We have placed packing in your abscess. Please return to the ER in 2 days so we can remove the packing. Please take the antibiotics as prescribed. I gave you a small bottle of a stronger pain medicine called Austin. Please be aware that Austin does have Tylenol (acetaminophen) in it. Please make sure you do not take more than 4000 mg of acetaminophen a day. Do not drive or care for children after you have taken this medication they will make you sleepy and sometimes impair judgment. Please return to the ER immediately if you have spreading redness, swelling, fevers, or feel that you have worsening infection. I have started you on an antibiotic called doxycycline. Doxycycline will make your skin more sensitive to the sun so please make sure you keep your skin covered or wear sunscreen whenever out in the sun. Prescriptions: RX: Doxycycline Hyclate 100 mg PO BID #14 tablet.dr Forms: Return to Work
== END 2019-04-14 00:10 | disposition home or self-care (01) ==
LOC: ER 21:55
DX: L02.411 Cutaneous abscess of right axilla (principal)
CPT/HCPCS: 99283; 10060; J3490 ×2

== ENCOUNTER 2019-04-16 11:36 | Emergency (ER) | payer SELFPAY ==
[2019-04-16 12:48] VITALS: BP 117/59
--- NOTE | 2019-04-16 12:55 | ER Document Report ---
ED Suture/Wound Recheck - General Chief Complaint: Wound Recheck Stated Complaint: WOUND RECHECK Time Seen by Provider: 04/16/19 12:35 Mode of Arrival: Ambulatory Information source: Patient Notes: 28-year-old female presented to ED for follow-up to an abscess that was I&D on the . Patient came to the ED today to have the packing removed and the abscess reassessed. She states she has not gotten the doxycycline because she cannot afford it. Patient is alert oriented respirations regular and unlabored speaking in full sentences walks with a even steady gait. Patient states she is changing the dressings as instructed. TRAVEL OUTSIDE OF THE [place] IN LAST 30 DAYS: No - HPI Previous ED treatment: I&D of abscess Antibiotics given previously: Prescription - She does not fill the prescription because she cannot afford it I did give her a coupon for discount on the prescription as she stated she would go and fill it as soon as she left here. Quality of pain: Achy, Sharp Severity: Moderate Pain Level: 3 Symptoms since procedure: Drainage, Pain. denies: Redness Exacerbated by: Movement Relieved by: Denies - Related Data Allergies/Adverse Reactions: cherries Allergy (Severe, Uncoded 04/16/19 11:51) face swells Past Medical History - General Information source: Patient - Social History Smoking Status: Current Every Day Smoker Smoking Education Provided: Yes - 4 minutes Frequency of alcohol use: None Drug Abuse: None Lives with: Family Family History: Reviewed & Not Pertinent Patient has suicidal ideation: No Patient has homicidal ideation: No - Past Medical History Cardiac Medical History: Reports: None Pulmonary Medical History: Reports: None EENT Medical History: Reports: None Neurological Medical History: Reports: None Endocrine Medical History: Reports: None Renal/ Medical History: Reports: None. Denies: Hx Peritoneal Dialysis Malignancy Medical History: Reports: None GI Medical History: Reports: Hx Gastroesophageal Reflux Disease Musculoskeletal Medical History: Reports None Skin Medical History: Reports None Psychiatric Medical History: Reports: Hx Depression, Hx Post Traumatic Stress Disorder Traumatic Medical History: Reports: None Infectious Medical History: Reports: None Past Surgical History: Reports: Hx Section, Hx Tonsillectomy Review of Systems - Review of Systems Constitutional: No symptoms reported EENT: No symptoms reported Cardiovascular: No symptoms reported Respiratory: No symptoms reported Gastrointestinal: No symptoms reported Genitourinary: No symptoms reported Female Genitourinary: No symptoms reported Musculoskeletal: No symptoms reported Skin: Other - Abscess I&D 2 days ago draining well at this time. Packing removed. Patient tolerated well. She states it did not hurt near as much as she thought it would. Site was irrigated with saline and dressing reapplied. Patient tolerated well. Hematologic/Lymphatic: No symptoms reported Neurological/Psychological: No symptoms reported -: Yes All other systems reviewed and negative Physical Exam - Vital signs Vitals: Temp Pulse Resp BP Pulse Ox 98.7 F 100 16 117/59 L 99 04/16/19 11:58 04/16/19 11:58 04/16/19 11:58 04/16/19 11:58 04/16/19 11:58 Interpretation: Normal - General General appearance: Appears well, Alert - HEENT Head: Normocephalic, Atraumatic Eyes: Normal Pupils: PERRL - Respiratory Respiratory status: No respiratory distress Chest status: Nontender Breath sounds: Normal Chest palpation: Normal - Cardiovascular Rhythm: Regular Heart sounds: Normal auscultation Murmur: No - Abdominal Inspection: Normal Distension: No distension Bowel sounds: Normal Tenderness: Nontender Organomegaly: No organomegaly - Back Back: Normal, Nontender - Extremities General upper extremity: Normal inspection, Nontender, Normal color, Normal ROM, Normal temperature General lower extremity: Normal inspection, Nontender, Normal color, Normal ROM, Normal temperature, Normal weight bearing. No: Aditya's sign - Neurological Neuro grossly intact: Yes Cognition: Normal Orientation: AAOx4 Brian Coma Scale Eye Opening: Spontaneous Humbird Coma Scale Verbal: Oriented Brian Coma Scale Motor: Obeys Commands Humbird Coma Scale Total: 15 Speech: Normal Motor strength normal: LUE, RUE, LLE, RLE Sensory: Normal - Psychological Associated symptoms: Normal affect, Normal mood - Skin Skin Temperature: Warm Skin Moisture: Dry Skin Color: Normal Location of irregularity: Extremities - Right axilla abscess draining well no redness no inflammation Irregularity with: Swelling, Tenderness Course - Re-evaluation Re-evalutation: 04/16/19 20:54 She states they had not started the antibiotics because they but could not afford the prescription. A discount coupon given for the prescription for [facility] and for [facility]. Patient states she would go right away and fill the prescription and take the medications as ordered. She was discharged home. She was instructed to irrigate the area or soak it with Epson salt 2-3 times a day. Patient verbalized understanding and agreement with treatment plan. Patient was discharged home. - Vital Signs Vital signs: Temp Pulse Resp BP Pulse Ox 98.7 F 100 16 117/59 L 99 04/16/19 11:58 04/16/19 11:58 04/16/19 11:58 04/16/19 11:58 04/16/19 11:58 Discharge - Discharge Clinical Impression: Abscess re-check Condition: Stable Disposition: HOME, SELF-CARE Instructions: Family Physicians / Practices Additional Instructions: ABSCESS: You have an abscess (boil). This a pus-forming infection, usually due to staph. Some boils may be left to drain on their own, but most require lancing. From the time the tender lump first appears, it may be three or four days before the abscess is ready to brandee. Local heat and rest help at this stage of treatment. An antibiotic may prevent spread of the infection. Once the abscess is opened, packing may be placed into it. This is done so pus is not sealed inside by premature closure of the cavity. The packing will be removed at your follow-up visit or you may be advised to remove it yourself at home. Sometimes this packing must be replaced a few times during healing. The wound will heal with surprisingly little scar. Depending on the size and location of an abscess, healing can take one to four weeks. You may shower and wash the area around the incision site two or three times a day. Antibiotics may be prescribed, but are usually not necessary after an abscess has been drained. If you develop fever, chills, worsening pain, or increasing swelling in the area, call the doctor or return immediately. DOXYCYCLINE: Doxycycline (Vibramycin, Doryx) is an antibiotic of the tetracycline family. This type of drug is useful for infections of the respiratory tract and genital tract, and is sometimes used for intestinal infections. Unlike most tetracyclines, doxycycline can be taken with food. It is longer acting, and (usually) less prone to side effects than regular tetracycline. Tetracycline antibiotics can stain immature teeth and SHOULD NOT BE TAKEN BY CHILDREN, NURSING MOTHERS, OR WOMEN. Tetracyclines can make you more prone to sunburn. Abdominal cramping, nausea, and diarrhea are occasional side effects. Women may experience vaginal yeast infections. Call the doctor at once if you develop hives, itching, shortness of breath, or lightheadedness. Epsom Salt Soaks Soak the wound area in a container of warm epsom salt water. If you can't get the wound area into a bucket or fernández, use a folded towel soaked in the epsom salt solution and apply to the area. Use clean hot tap water (about the temperature of a very warm bath), mixing in about one (1) teaspoon for every pint of water. Two gallon --> 16 teaspoons Epsom Salts One gallon --> 8 teaspoons Epsom Salts Two quarts --> 4 teaspoons Epsom Salts One quart --> 2 teaspoons Epsom Salts Soak the wound for about 20 minutes while gently moving it around in the water. Repeat this four (4) times a day. Ibuprofen Ibuprofen is an excellent, safe drug for pain control. In addition, it has potent antiinflammatory effects which are beneficial, especially in the treatment of injuries, arthritis, or tendonitis. It's best to take ibuprofen with food. Persons with ulcer disease or allergy to aspirin should notify their physician of this before taking ibuprofen. Take the medication exactly as prescribed. Don't take additional doses unless instructed to do so by your doctor. If you develop wheezing, shortness of breath, hives, faintness, stomach pain, vomiting, or dark black stools, return for re-evaluation at once. FOLLOW-UP CARE: If you have been referred to a physician for follow-up care, call the physicians office for an appointment as you were instructed or within the next two days. If you experience worsening or a significant change in your symptoms, notify the physician immediately or return to the Emergency Department at any time for re-evaluation. Forms: Smoking Cessation Education, Return to Work
== END 2019-04-16 12:53 | disposition home or self-care (01) ==
LOC: ER 11:36
DX: L02.411 Cutaneous abscess of right axilla (principal); T36.4X6A Underdosing of tetracyclines, initial encounter; Z91.120 Patient's intentional underdosing of medication regimen due to financial hardship; Z91.14 Patient's other noncompliance with medication regimen; Z48.01 Encounter for change or removal of surgical wound dressing; F17.200 Nicotine dependence, unspecified, uncomplicated; Z91.018 Allergy to other foods
CPT/HCPCS: 99282; 99406

== ENCOUNTER 2019-07-06 09:58 | Emergency (ER) | payer SELFPAY ==
[2019-07-06] MEDS ORDERED: LIDOCAINE 1%/EPINEPHRINE INJ 20 ML VIAL INJ ONE (11:03)
--- NOTE | 2019-07-06 11:04 | ER Document Report ---
HPI - HPI Time Seen by Provider: 07/06/19 10:56 Pain Level: 2 Context: Patient is a 28-year-old female presents to the emergency department with a chief complaint of abscess underneath the right axilla. Patient states she has had these before. Patient states the last time she had the abscess incised she was unable to get the antibiotic as she cannot afford it. Patient reports the abscess did seem to heal but never quite went away. Patient reports in the past week she has developed another abscess that has drained a yellow discharge. Patient reports is extremely tender. Patient denies fever. Patient denies history of diabetes. - REPRODUCTIVE Reproductive: DENIES: : Past Medical History - General Information source: Patient - Social History Smoking Status: Current Every Day Smoker Frequency of alcohol use: None Drug Abuse: None Lives with: Family Family History: Reviewed & Not Pertinent Patient has suicidal ideation: No Patient has homicidal ideation: No - Past Medical History Cardiac Medical History: Reports: None Pulmonary Medical History: Reports: None EENT Medical History: Reports: None Neurological Medical History: Reports: None Endocrine Medical History: Reports: None Renal/ Medical History: Reports: None. Denies: Hx Peritoneal Dialysis Malignancy Medical History: Reports: None GI Medical History: Reports: Hx Gastroesophageal Reflux Disease. Denies: Hx Hiatal Hernia, Hx Ulcer Musculoskeletal Medical History: Reports None Skin Medical History: Reports None Psychiatric Medical History: Reports: Hx Depression, Hx Post Traumatic Stress Disorder Denies: Hx Bipolar Disorder, Hx Schizophrenia Traumatic Medical History: Reports: None Infectious Medical History: Reports: None. Denies: Hx HIV Past Surgical History: Reports: Hx Section, Hx Tonsillectomy Vertical Provider Document - CONSTITUTIONAL Agree With Documented VS: Yes Exam Limitations: No Limitations General Appearance: No Apparent Distress - INFECTION CONTROL TRAVEL OUTSIDE OF THE [place] IN LAST 30 DAYS: No - HEENT HEENT: Atraumatic, Normocephalic, PERRLA - RESPIRATORY Respiratory: Breath Sounds Normal, No Respiratory Distress - CARDIOVASCULAR Cardiovascular: Regular Rate, Regular Rhythm - GI/ABDOMEN Gastrointestinal: Abdomen Soft, Abdomen Non-Tender, Normal Bowel Sounds - NEURO Level of Consciousness: Awake, Alert, Appropriate - DERM Integumentary: Warm, Abscess - Two abscesses noted in the right axilla. There is purulent drainage coming from the abscess that is more posterior to the body. Patient reports significant tenderness. The abscesses are fluctuant. There is no surrounding cellulitis. The abscesses total about 5 cm in length and appear to have joined together or are side by side. Course - Re-evaluation Re-evalutation: 07/06/19 11:07 Patient will require I&D. - Vital Signs Vital signs: Temp Pulse Resp BP Pulse Ox 98.7 F 97 16 129/82 H 98 07/06/19 10:03 07/06/19 10:03 07/06/19 10:03 07/06/19 10:03 07/06/19 10:03 Procedures - Incision and Drainage Right Arm Type: Multiple Anesthetic type: 1% Lidocaine w/epi mL's of anesthetic: 6 Blade size: 11 I&D procedure: Betadine prep applied Incision Method: Incision made with needle Notes: 07/06/19 14:09 2 incisions were made underneath the right axilla. There was a large amount of purulent drainage that came out of the wounds. I was able to irrigate the wounds with saline to remove most of the drainage. I did inform the patient that I need to make 1/3 injection of lidocaine to numb up an area. Patient declined another needlestick. I did inform the patient that if this was not cut open and drained the abscess may not get better. Patient states she would like to try to go home and use warm compresses and oral antibiotics. Discharge - Discharge Clinical Impression: Abscess Condition: Stable Disposition: HOME, SELF-CARE Instructions: Abscess ([facility]), Post Incision and Drainage Additional Instructions: Today he was seen in the emergency department for an abscess x2 underneath the right axilla. This did require an incision and drainage. A large amount of pus was removed from the area. You do need to have this rechecked in 2 days. Please return before then if you develop high fever, chills, if you note spreading of redness or increased swelling and tenderness underneath the arm. I have prescribed you an antibiotic called doxycycline which is also Vibramycin. Please use the [facility] card that I have given you to find the cheapest bethea. It is very important that you do get this antibiotic. We have sent off a culture, if this is positive for type of bacteria we need to change her antibiotic you will be contacted via telephone. Please use warm compresses to the site and gauze as the area may continue to drain it. The antibiotic that you are being placed on does cause her skin to be sensitive to the sun. Please refrain from getting out in the sun while on this antibiotic as it can blister and burn her skin. Post Incision and Drainage You have had an incision made to allow drainage of an abscess. The incision must remain open so that pus and debris can drain from the wound. If the abscess cavity is large, packing is placed. This keeps the tissues from collapsing and trapping pus inside, while the body shrinks the cavity. The packing may need to be replaced every day or two. The physician will instruct you on the packing. Keep a bulky dressing over the area. Replace it if it becomes saturated with blood or pus. Do not disturb the packing (if present). You may shower and cleanse the area with gentle soap and warm water two or three times a day. Local warmth may be soothing, and may promote faster healin g. Return if you develop high fever or chills, or if you note spreading redness, increasing swelling, or increasing tenderness. Abscess You have an abscess (boil). This a pus-forming infection, usually due to staph. Some boils may be left to drain on their own, but most require lancing. From the time the tender lump first appears, it may be three or four days before the abscess is ready to brandee. Local heat and rest help at this stage of treatment. An antibiotic may prevent spread of the infection. Once the abscess is opened, packing may be placed into it. This is done so pus is not sealed inside by premature closure of the cavity. The packing will be removed at your follow-up visit or you may be advised to remove it yourself at home. Sometimes this packing must be replaced a few times during healing. The wound will heal with surprisingly little scar. Depending on the size and location of an abscess, healing can take one to four weeks. You may shower and wash the area around the incision site two or three times a day. Antibiotics may be prescribed, but are usually not necessary after an abscess has been drained. If you develop fever, chilling, worsening pain, or increasing swelling in the area, call the doctor or return immediately. Prescriptions: Cephalexin [Keflex] 500 mg PO QID 7 Days #28 capsule Doxycycline Hyclate [Vibramycin] 100 mg PO BID 7 Days #14 capsule
[2019-07-06] MEDS ORDERED: HYDROCODONE/ACETAMINOPHEN 5-325 MG TABLET PO ONE (11:19)
[2019-07-06] MEDS ORDERED: HYDROCODONE/ACETAMINOPHEN 5-325 MG TABLET ONE (11:28)
[2019-07-06] MEDS ORDERED: HYDROCODONE/ACETAMINOPHEN 5-325 MG (6 TAB/ER DISP) PO PRN (12:13)
[2019-07-06] MEDS ORDERED: DOXYCYCLINE HYCLATE 100 MG TABLET PO ONE (12:16)
[2019-07-06] MEDS ORDERED: CEPHALEXIN 500 MG CAPSULE PO ONE (12:21)
[2019-07-06 12:47] VITALS: BP 121/81
== END 2019-07-06 12:40 | disposition home or self-care (01) ==
LOC: ER 09:58
PROC: 0H9BXZZ Drainage of Right Upper Arm Skin, External Approach (ICD-10-PCS; principal; 2019-07-06)
DX: L02.411 Cutaneous abscess of right axilla (principal); L03.111 Cellulitis of right axilla; F17.200 Nicotine dependence, unspecified, uncomplicated
CPT/HCPCS: 87070; 87205; 87077; 10060; A6266; J3490; 99283

== ENCOUNTER 2019-07-09 09:38 | Emergency (ER) | payer SELFPAY ==
[2019-07-09 09:54] VITALS: BP 120/80
--- NOTE | 2019-07-09 10:24 | ER Document Report ---
HPI - HPI Time Seen by Provider: 07/09/19 10:14 Pain Level: 5 Notes: Patient is an otherwise healthy 28-year-old female presenting with request for wound recheck. Patient reports she was seen here 2 days ago and had an abscess to her right axilla incised and drained. She reports that has been draining well and she has been taking her antibiotics as prescribed. She denies any fevers. - EENT EENT: DENIES: Sore Throat, Ear Pain, Eye problems - NEURO Neurology: DENIES: Headache, Weakness, Vision blurred, Dizzinesss / Vertigo - CARDIOVASCULAR Cardiovascular: DENIES: Chest pain - RESPIRATORY Respiratory: DENIES: Trouble Breathing, Coughing - GASTROINTESTINAL Gastrointestinal: DENIES: Abdominal Pain, Black / Bloody Stools - URINARY Urinary: DENIES: Dysuria, Urgency, Frequency - REPRODUCTIVE Reproductive: DENIES: :, Postmenopausal, Abnormal bleeding / discharge - MUSCULOSKELETAL Musculoskeletal: DENIES: Extremity pain Past Medical History - General Information source: Patient - Social History Smoking Status: Current Every Day Smoker Family History: Reviewed & Not Pertinent Patient has suicidal ideation: No Patient has homicidal ideation: No Renal/ Medical History: Denies: Hx Peritoneal Dialysis GI Medical History: Reports: Hx Gastroesophageal Reflux Disease. Denies: Hx Hiatal Hernia, Hx Ulcer Psychiatric Medical History: Reports: Hx Depression, Hx Post Traumatic Stress Disorder Denies: Hx Bipolar Disorder, Hx Schizophrenia Infectious Medical History: Denies: Hx HIV Past Surgical History: Reports: Hx Section, Hx Tonsillectomy Vertical Provider Document - CONSTITUTIONAL Notes: PHYSICAL EXAMINATION: GENERAL: Well-appearing, well-nourished and in no acute distress. HEAD: Atraumatic, normocephalic. EYES: Pupils equal round extraocular movements intact, conjunctiva are normal. ENT: Nares patent NECK: Normal range of motion LUNGS: No respiratory distress Musculoskeletal: Normal range of motion NEUROLOGICAL: Normal speech, normal gait. PSYCH: Normal mood, normal affect. SKIN: Area with mild induration but no fluctuance noted to right axilla, some tenderness with palpation present. - INFECTION CONTROL TRAVEL OUTSIDE OF THE [place] IN LAST 30 DAYS: No Course - Re-evaluation Re-evalutation: Patient reports symptoms have much improved since she had the abscess drained 2 days ago. She reports she continues to take her medications. Encouraged to continue using warm compresses to the area 3-4 times daily. No signs of w orsening infection. Patient will be discharged home at this time. The patient's emergency department workup and current diagnosis were explained to the patient and or family. Follow-up instructions were provided. Medications if prescribed were discussed. Instructions for when to return to the emergency department including specific worrisome symptoms were discussed with the patient and/or family. - Vital Signs Vital signs: Temp Pulse Resp BP Pulse Ox 98.2 F 84 16 120/80 100 07/09/19 09:52 07/09/19 09:52 07/09/19 09:52 07/09/19 09:52 07/09/19 09:52 Discharge - Discharge Clinical Impression: Abscess re-check Condition: Stable Disposition: HOME, SELF-CARE Additional Instructions: Please continue to take antibiotics as prescribed by previous provider. Please continue to put warm soaks to the area or hot compresses at least 4 times daily. Please continue to take ibuprofen 600 mg every 6 hours. Please return to the emergency department with new or worsening symptoms to include development of fever.
== END 2019-07-09 10:32 | disposition home or self-care (01) ==
LOC: ER 09:38
DX: L02.411 Cutaneous abscess of right axilla (principal); F17.200 Nicotine dependence, unspecified, uncomplicated
CPT/HCPCS: 99282

== ENCOUNTER 2019-07-27 13:30 | Emergency (ER) | payer SELFPAY ==
[2019-07-27 13:50] VITALS: BP 126/93
--- NOTE | 2019-07-27 14:54 | ER Document Report ---
ED Foreign Body - General Chief Complaint: Foreign Body Stated Complaint: FOREIGN BODY IN VAGINA Time Seen by Provider: 07/27/19 14:41 TRAVEL OUTSIDE OF THE [place] IN LAST 30 DAYS: No - HPI Notes: Patient is a 28-year-old female that presents to the emergency department for chief complaint of vaginal foreign body. Patient reports using 2 condoms during sexual intercourse last night. She states she was only able to find one after having intercourse. She denies any pelvic pain or vaginal discharge. She denies any malodorous scent. She states she has tried digitally to remove the condom without success. Past Medical History: Negative Past Surgical History: Negative Social History: Reviewed in chart Family History: Reviewed and noncontributory for presenting illness Allergies: Reviewed, see documented allergy list. REVIEW OF SYSTEMS: CONSTITUTIONAL : No fever No chills No diaphoresis No recent illness EENT: No vision changes No congestion No sore throat CARDIOVASCULAR: No chest pain No palpitations RESPIRATORY: No shortness of breath No cough No difficulty breathing GASTROINTESTINAL: No abdominal pain No nausea No vomiting No diarrhea GENITOURINARY: No dysuria No hematuria No difficulty urinating MUSCULOSKELETAL: No back pain No leg pain No arm pain SKIN: No rashes No lesions LYMPHATIC: No swollen, enlarged glands. NEUROLOGICAL: No lightheadedness No headache No weakness No paresthesias PSYCHIATRIC: No anxiety No depression PHYSICAL EXAMINATION: Vital signs reviewed, nursing noted reviewed. GENERAL: Well-appearing, well-nourished and in no acute distress. HEAD: Atraumatic, normocephalic. EYES: Eyes appear normal, extraocular movements intact, sclera anicteric, conjunctiva are normal. ENT: nares patent, oropharynx clear without exudates. Moist mucous membranes. NECK: Normal range of motion, supple without lymphadenopathy LUNGS: Breath sounds clear to auscultation bilaterally and equal. No wheezes rales or rhonchi. HEART: Regular rate and rhythm without murmurs ABDOMEN: Soft, nontender, normoactive bowel sounds. No rebound, guarding, or rigidity. No masses appreciated. : Normal external genitalia without rashes or lesions, uterus midline and nontender. No vaginal discharge. Cervix nonfriable. No adnexal tenderness. White and intact condom and posterior vaginal vault EXTREMITIES: Nontender, good range of motion, no pitting or edema. NEUROLOGICAL: No focal neurological deficits. Moves all extremities spontaneously Motor and sensory grossly intact on exam. PSYCH: Normal mood, normal affect. SKIN: Warm, Dry, normal turgor, no rashes or lesions noted on exposed skin - Related Data Allergies/Adverse Reactions: cherries Allergy (Severe, Uncoded 07/27/19 14:08) face swells Past Medical History - Social History Smoking Status: Former Smoker Chew tobacco use (# tins/day): No Frequency of alcohol use: None Drug Abuse: None Family History: Reviewed & Not Pertinent Patient has suicidal ideation: No Patient has homicidal ideation: No Renal/ Medical History: Denies: Hx Peritoneal Dialysis GI Medical History: Reports: Hx Gastroesophageal Reflux Disease. Denies: Hx Hiatal Hernia, Hx Ulcer Psychiatric Medical History: Reports: Hx Depression, Hx Post Traumatic Stress Disorder Denies: Hx Bipolar Disorder, Hx Schizophrenia Infectious Medical History: Denies: Hx HIV Past Surgical History: Reports: Hx Section, Hx Tonsillectomy Physical Exam - Vital signs Vitals: Temp Pulse Resp BP Pulse Ox 98.4 F 110 H 16 126/93 H 100 07/27/19 13:48 07/27/19 13:48 07/27/19 13:48 07/27/19 13:48 07/27/19 13:48 Course - Re-evaluation Re-evalutation: 07/27/19 14:53 Vitals reviewed. Nursing notes reviewed. Patient did have a retained condom in her vaginal vault which was removed in the emergency room. She has no signs of infection currently. I did family and marriage counsellor her on signs of infection and following with [facility]. She is stable at discharge. - Vital Signs Vital signs: Temp Pulse Resp BP Pulse Ox 98.4 F 110 H 16 126/93 H 100 07/27/19 13:48 07/27/19 13:48 07/27/19 13:48 07/27/19 13:48 07/27/19 13:48 Procedures - Additional Procedures Foreign body removal Time performed: 14:54 Notes: 07/27/19 14:54 Verbal consent obtained by patient. Direct visualization of condom in vaginal vault. Condom withdrawn using ring forceps. Condom inspected and intact without retained contents in the vagina. Patient tolerated well without complication Discharge - Discharge Clinical Impression: Vaginal foreign body Qualifiers: Encounter type: initial encounter Qualified Code(s): T19.2XXA - Foreign body in vulva and vagina, initial encounter Condition: Stable Disposition: HOME, SELF-CARE Instructions: Vaginitis ([facility]) Additional Instructions: Please return to the emergency department if you have any worsening, or concern of your symptoms. Please return to the emergency department if you develop chest pain, difficulty breathing, severe abdominal pain, or ongoing vomiting. Please follow-up with your primary care physician in 2-3 days and any other recommended physicians. If prescribed, take all medications as directed. If you have any questions or concerns do not hesitate to return the emergency department for evaluation. If you begin to have vaginal discharge, itching or irritation you should follow with [facility] as these may be signs of vaginitis. Currently you do not have any signs of infection. Referrals: [facility] [Provider Group] - Follow up as needed
== END 2019-07-27 15:02 | disposition home or self-care (01) ==
LOC: ER 13:30
DX: T19.2XXA Foreign body in vulva and vagina, initial encounter (principal); X58.XXXA Exposure to other specified factors, initial encounter
CPT/HCPCS: 99283

== ENCOUNTER 2019-10-17 16:31 | Emergency (ER) | payer SELFPAY ==
--- NOTE | 2019-10-17 17:15 | ER Document Report ---
ED Medical Screen (RME) - General Chief Complaint: Sore Throat Stated Complaint: SORE THROAT, HEADACHE, NECK PAIN Time Seen by Provider: 10/17/19 17:09 Mode of Arrival: Ambulatory Information source: Patient Notes: 29-year-old female presented to ED for body aches all over sore throat headache neck pain with fever 102.7 in the emergency room. Her blood pressure was 88/68 and pulse was 124 she states she has been sick since yesterday. She states she did get a flu shot and has not taken any Tylenol or Motrin today. Patient has been drinking soda while in the emergency room. I have greeted and performed a rapid initial assessment of this patient. A comprehensive ED assessment and evaluation of the patient, analysis of test results and completion of medical decision making process will be conducted by an additional ED providers. TRAVEL OUTSIDE OF THE [place] IN LAST 30 DAYS: No - Related Data Allergies/Adverse Reactions: cherries Allergy (Severe, Uncoded 07/27/19 14:08) face swells Past Medical History Renal/ Medical History: Denies: Hx Peritoneal Dialysis GI Medical History: Reports: Hx Gastroesophageal Reflux Disease. Denies: Hx Hiatal Hernia, Hx Ulcer Psychiatric Medical History: Reports: Hx Depression, Hx Post Traumatic Stress Disorder Denies: Hx Bipolar Disorder, Hx Schizophrenia Infectious Medical History: Denies: Hx HIV Past Surgical History: Reports: Hx Section, Hx Tonsillectomy Physical Exam - Vital signs Vitals: Temp Pulse Resp BP Pulse Ox 102.7 F H 124 H 16 88/68 L 100 10/17/19 17:04 10/17/19 17:04 10/17/19 17:04 10/17/19 17:04 10/17/19 17:04 Course - Vital Signs Vital signs: Temp Pulse Resp BP Pulse Ox 102.7 F H 124 H 16 88/68 L 100 10/17/19 17:04 10/17/19 17:04 10/17/19 17:04 10/17/19 17:04 10/17/19 17:04
[2019-10-17] MEDS ORDERED: ACETAMINOPHEN 325 MG TABLET PO ONE (17:16)
[2019-10-17] MEDS ORDERED: IBUPROFEN 600 MG TABLET PO ONE (17:16)
[2019-10-17] MEDS: NORMAL SALINE 1000 ML 1,000 ML IV PRN ×2 (17:54→17:55)
[2019-10-17 18:24] LABS: ABSOLUTE MONOCYTES (AUTO) 1.3 10^3/uL (0.1-1.4); ABSOLUTE NEUT (AUTO) 15.1 10^3/uL (1.7-8.2); BASOPHILS % (AUTO) 0.2 % (0-2); EOSINOPHILS % (AUTO) 0.1 % (0-6); HEMATOCRIT 29.3 % (36.0-47.0); HEMOGLOBIN 9.2 g/dL (12.0-15.5); LYMPHOCYTES % (AUTO) 5.8 % (13-45); MEAN CORPUSCULAR HEMOGLOBIN 22.4 pg (27.0-33.4); MEAN CORPUSCULAR HGB CONC 31.3 g/dL (32.0-36.0); MEAN CORPUSCULAR VOLUME 72 fl (80-97); MONOCYTES % (AUTO) 7.3 % (3-13); PLATELET COUNT 274 10^3/uL (150-450); RED BLOOD COUNT 4.08 10^6/uL (3.72-5.28); RED CELL DISTRIBUTION WIDTH 19.9 % (11.5-14.0); SEGMENTED NEUTROPHILS % (AUTO) 86.6 % (42-78); TOTAL CELLS COUNTED % (AUTO) 100 %; WHITE BLOOD COUNT 17.4 10^3/uL (4.0-10.5)
[2019-10-17 18:43] LABS: ALBUMIN 4.2 g/dL (3.5-5.0); ALKALINE PHOSPHATASE 79 U/L (38-126); ANION GAP 12 (5-19); ASPARTATE AMINO TRANSFERASE 44 U/L (14-36); BILIRUBIN,DIRECT 0.2 mg/dL (0.0-0.4); BILIRUBIN,TOTAL 0.4 mg/dL (0.2-1.3); BLOOD UREA NITROGEN 8 mg/dL (7-20); CALCIUM 9.7 mg/dL (8.4-10.2); CARBON DIOXIDE 22 mmol/L (22-30); CHLORIDE 103 mmol/L (98-107); GLUCOSE 100 mg/dL (75-110); POTASSIUM 4.1 mmol/L (3.6-5.0); TOTAL PROTEIN 7.5 g/dL (6.3-8.2)
[2019-10-17 18:46] LABS: APPEARANCE,URINE CLOUDY; BILIRUBIN,URINE NEGATIVE (NEGATIVE); COLOR,URINE AMBER; GLUCOSE, URINE NEGATIVE (NEGATIVE); KETONES,URINE TRACE mg/dL (NEGATIVE); PROTEIN,URINE 30 mg/dL (NEGATIVE); URINE SPECIFIC GRAVITY 1.027
--- NOTE | 2019-10-17 18:49 | ER Document Report ---
ED General - General Chief Complaint: Flu Symptoms Stated Complaint: SORE THROAT, HEADACHE, NECK PAIN Time Seen by Provider: 10/17/19 17:09 Mode of Arrival: Ambulatory TRAVEL OUTSIDE OF THE [place] IN LAST 30 DAYS: No - HPI Notes: Previously healthy 29-year-old female presenting with a flulike illness of 48 hours duration. Initially started with fever chills dull headache and myalgias. Now has nonproductive cough. No nausea vomiting or diarrhea. No skin rashes. Generally healthy taking no regular medications. No allergies to medications. 1/4 pack/day cigarette smoker. Denies use of drugs or alcohol. Patient works in a fast food restaurant. Last menses 3 weeks ago described as normal. - Related Data Allergies/Adverse Reactions: cherries Allergy (Severe, Uncoded 07/27/19 14:08) face swells Past Medical History - General Information source: Patient - Social History Smoking Status: Current Every Day Smoker Frequency of alcohol use: None Drug Abuse: None Family History: Reviewed & Not Pertinent Patient has suicidal ideation: No Patient has homicidal ideation: No Renal/ Medical History: Denies: Hx Peritoneal Dialysis GI Medical History: Reports: Hx Gastroesophageal Reflux Disease. Denies: Hx Hiatal Hernia, Hx Ulcer Psychiatric Medical History: Reports: Hx Depression, Hx Post Traumatic Stress Disorder Denies: Hx Bipolar Disorder, Hx Schizophrenia Infectious Medical History: Denies: Hx HIV Past Surgical History: Reports: Hx Section, Hx Tonsillectomy Review of Systems - Review of Systems Notes: Constitutional: As per HPI. HENT: Has sore throat. Eyes: Negative for visual changes. Cardiovascular: Negative for chest pain. Respiratory: As per HPI. Gastrointestinal: As per HPI. Genitourinary: Negative for dysuria. Musculoskeletal: As per HPI. Skin: Negative for rash. Neurological: Negative for headaches, weakness or numbness. 10 point ROS negative except as marked above and in HPI. Physical Exam - Vital signs Vitals: Temp Pulse Resp BP Pulse Ox 102.7 F H 124 H 16 88/68 L 100 10/17/19 17:04 10/17/19 17:04 10/17/19 17:04 10/17/19 17:04 10/17/19 17:04 - Notes Notes: GENERAL: Female patient approximately stated age who appears ill and uncomfortable. Warm to touch with temperature of 102 at triage. SKIN: Good turgor no rashes. HEAD: Normocephalic atraumatic. EYES: PERRLA. EOMI. Conjunctivae injected. EARS: CANALS AND TMS CLEAR. NOSE: Serous nasal drainage bilaterally. MOUTH: Moist mucosa. Good dentition. No stridor or edema. No drooling. THROAT: Injected without exudate. NECK: Supple. No masses or thyromegaly. No adenopathy. Carotids 2+ without bruits. No JVD. BACK: Symmetrical without tenderness. CHEST: Respirations unlabored. Breath sounds clear and symmetrical. HEART: Tachycardic regular rhythm. No murmur gallop or rub. ABDOMEN: Soft nontender without masses, organomegaly or rebound. Bowel sounds normally active. No bruits. GENITALIA: Deferred. EXTREMITIES: No edema. No calf tenderness. Cap refill less than 1.5 seconds. Dorsalis pedis and posterior tibial pulses 3+ and symmetrical. NEUROLOGICAL: GCS 15. Alert and oriented x3. Normal gait. Fluent speech. Cranial nerves II through XII intact. Sensorimotor and cerebellar normal. Normal tone. PSYCHIATRIC: Appropriate affect. Course - Re-evaluation Re-evalutation: 10/17/19 22:21 Influenza a and B screens negative. Strep screen negative. Chest x-ray shows no infiltrates. Urinalysis unremarkable. White count is elevated 17,000. Abdominal exam is benign. Patient is afebrile and very comfortable now after receiving IV fluids. Her lactate level was not elevated. This appears to be viral syndrome with flulike illness and dehydration. She is now tolerating p.o. fluids with no difficulty. She appears stable for outpatient follow-up. - Vital Signs Vital signs: Temp Pulse Resp BP Pulse Ox 99.3 F 129 H 18 138/80 H 100 10/17/19 20:36 10/17/19 17:12 10/17/19 20:01 10/17/19 20:00 10/17/19 20:01 - Laboratory Result Diagrams: 10/17/19 18:01 10/17/19 18:01 Laboratory results interpreted by me: 10/17/19 10/17/19 10/17/19 18:01 18:01 18:21 WBC 17.4 H Hgb 9.2 L Hct 29.3 L MCV 72 L MCH 22.4 L MCHC 31.3 L RDW 19.9 H Lymph % (Auto) 5.8 L Absolute Neuts (auto) 15.1 H Seg Neutrophils % 86.6 H Sodium 136.7 L AST 44 H Urine Protein 30 H Urine Ketones TRACE H Urine Urobilinogen 4.0 H Leukocyte Esterase Rfl TRACE H Urine Ascorbic Acid 40 H Discharge - Discharge Clinical Impression: Acute viral syndrome, Dehydration Condition: Stable Disposition: HOME, SELF-CARE Instructions: Fever ([facility]) Additional Instructions: Dehydration Dehydration can result from vomiting or diarrhea, fever, or decreased intake of fluids. If severe, hospitalization and intravenous fluids may be required. Most cases are treated at home with fluids by mouth. For the next 24 hours, drink lots of clear fluids. In mild cases, this can be soda pop or sports drinks. For more severe dehydration, the doctor may recommend special fluids such as Pedialyte or Lytren. Try to get three liters (3 quarts) of fluid per day. If vomiting occurs, continue to drink the fluids frequently (every 15 to 20 minutes), but in small amounts (one or two ounces). Depending on the type of dehydration, the doctor may prescribe antinausea medicine or potassium replacements. Call the doctor or return for re-examination if you become progressively weak, vomit repeatedly, or have other new symptoms. Increase oral fluids. Tylenol as needed. You are being provided a work note to excuse you for the next 3 days. See referral physician or return here for reevaluation within the next 3 days. Return here as needed for new or worsening symptoms: Pain that is worsening or unimproved Uncontrolled vomiting High fever or shaking chills Overall worsening Prescriptions: Naproxen 500 mg PO BID PRN 7 Days #14 tablet PRN Reason: Ondansetron [Zofran Odt 4 mg Tablet] 1 - 2 tab PO Q4H PRN #15 tab.rapdis PRN Reason: For Nausea/Vomiting Forms: Return to Work
[2019-10-17 19:03] LABS: A TYPE INFLUENZA AG NEGATIVE (NEGATIVE); B INFLUENZA AG NEGATIVE (NEGATIVE)
--- NOTE | 2019-10-17 19:32 | RADIOLOGY REPORT (SQ) ---
EXAM DESCRIPTION: CHEST 2 VIEWS COMPLETED DATE/TIME: 10/17/2019 7:22 pm REASON FOR STUDY: cough congestion fever COMPARISON: None. EXAM PARAMETERS: NUMBER OF VIEWS: two views TECHNIQUE: Digital Frontal and Lateral radiographic views of the chest acquired. RADIATION DOSE: NA LIMITATIONS: none FINDINGS: LUNGS AND PLEURA: No opacities, masses or pneumothorax. No pleural effusion. MEDIASTINUM AND HILAR STRUCTURES: No masses or contour abnormalities. HEART AND VASCULAR STRUCTURES: Heart normal size. No evidence for failure. BONES: No acute findings. HARDWARE: None in the chest. OTHER: No other significant finding. IMPRESSION: NO ACUTE RADIOGRAPHIC FINDING IN THE CHEST. TECHNICAL DOCUMENTATION: JOB ID: [id number] [employer]- All Rights Reserved Reading location - IP/workstation name: [email or web address]
[2019-10-17 23:29] VITALS: BP 134/91
== END 2019-10-17 23:49 | disposition home or self-care (01) ==
LOC: ER 16:31
DX: B34.9 Viral infection, unspecified (principal); E86.0 Dehydration; R05 Cough; J02.9 Acute pharyngitis, unspecified; R50.9 Fever, unspecified; M79.10 Myalgia, unspecified site; F17.210 Nicotine dependence, cigarettes, uncomplicated; R00.0 Tachycardia, unspecified
CPT/HCPCS: 99283; 96360; 96361; 36415; 87040; 87070; 87880; 83605; 84703; 85025; 87077; 80053; 81001; 87186; 87804; 71046; J7030